=== PATIENT | female | born 1995 | race African-American/Black ===

== ENCOUNTER 2016-10-14 11:39 | Emergency (ER) | payer OTHER ==
[~2016-10-14] VITALS: Ht 165.1 cm; Wt 61.2 kg
[~2016-10-14 11:39] MED LIST: AMOXIL500 MG PO; DEPO-PROVE150 MG/11 IM; HUMALOG100 UNIT/1; IBUPROFEN800 M1 PO
--- NOTE | 2016-10-14 11:55 | ED GI/GU/ABDOMINAL COMPLAINT ---
History of Present Illness General Chief Complaint: Abdominal Pain/Flank Pain Stated Complaint: BIBA, ABD PAIN Source: patient, family, old records, EMS Exam Limitations: no limitations Vital Signs & Intake/Output Vital Signs & Intake/Output Vital Signs Date Time Temp Pulse Resp B/P B/P Pulse O2 O2 Flow FiO2 Mean Ox Delivery Rate 10/14 1338 98.2 88 18 124/64 99 Room Air 10/14 1150 98 Room Air 10/14 1145 97.8 92 18 141/83 98 Room Air Allergies Coded Allergies: Cephalosporins (Intermediate, HIVES 02/12/16) cefprozil (From CEFZIL) (Intermediate, HIVES 02/12/16) Reconcile Medications Dicyclomine Hydrochloride (Bentyl) 10 MG CAPSULE 1 CAP PO TID PRN pain Insulin Lispro (Humalog) 100 UNIT/1 ML CARTRIDGE DIABETES (Reported) Medroxyprogesterone Acetate (Depo-Provera) 150 MG/1 ML SYRINGE 1 ML IM Q3M CONTROL (Reported) Pantoprazole Sodium (Protonix) 40 MG TABLET.DR 1 TAB PO DAILY gastritis Triage Note: PT TO ROOM6 BIBA FROM WORK FOR SUDDEN ONSET OF EPIGASTRIC PAIN 10/10 AND NAUSEA 1HR LPTA. HX OF DIABETES, ASTHMA, PT HAS INSULIN PUMP. 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 DENIES V/D, DENIES CHEST PAIN, SOB. VSS. AFEBRILE. BG 128 PER MEDIC. KARMA CARTER AT BEDSIDE FOR PT EVAL. Triage Nurses Notes Reviewed? yes LMP (ages 10-50): unknown (ON DEPO) ? N Is pt currently ? No Onset: Abrupt Duration: hour(s): (1), constant Timing: recent history Quality/Severity: sharpness, severe, stabbing Severity Numbers: 10 Location: epigastric Radiation: no radiation Activities at Onset: none Prior Abdominal Problems: none No Modifying Factors: none Associated Symptoms: NAUSEA HPI: 21-year-old female type I diabetic with an insulin pump presents to the ER brought in by am is complaining of 10 out of 10 severe sharp stabbing epigastric pain is nonradiating associated with nausea for the past one hour. Symptoms came on suddenly. She denies vomiting diarrhea she attempted to have a bowel movement and eat which did not make the symptoms better or worse. She is medicated morphine in route by EMS without improvement. No history of abdominal surgeries in the past. The pain is nonradiating into her chest or back no urinary complaints no shortness of breath chest pain cough hemoptysis. She states her blood sugars have been well-controlled. There are no other associated symptoms or modifying factors otherwise. (TERI PRICE) Past History Travel History Traveled to [place] past 21 day No Medical History Any Pertinent Medical History? 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 No (TERI PRICE) Review of Systems Review of Systems Constitutional: Reports: see HPI. All Other Systems: Reviewed and Negative Comments Review of systems: See HPI, All other systems negative. Constitutional, no chills no fever, no malaise HEENT: No visual changes no sore throat no congestion Cardiovascular: No chest pain , no palpitation , no orthopnea Skin: no rashes, no change in skin Respiratory: No dyspnea no cough no sputum no hemoptysis GI: nausea no vomiting, no diarrhea, no bloating/constipation : No dysuria No hematuria, no frequency, no discharge Muscle skeletal: No joint pain, no joint swelling, no back pain, no neck pain, Neurologic: No numbness , no headache Psych: No stress Heme/endocrine: No bruising no bleeding Immunology: No lymphadenopathy (TERI PRICE) Physical Exam Physical Exam General Appearance: well developed/nourished, alert, awake, mild distress, moderate distress Gastrointestinal: soft, tenderness Comments: Well-developed well-nourished person in no acute distress HEENT: Normal EENT exam; PERRL, EOMI. HEAD is atraumatic. moist mucous membranes. Neck: Supple, normal range of motion Back: Nontender, no CVA tenderness. Full range of motion Cardiovascular: Regular rate and rhythms no murmurs rubs Respiratory: Chest nontender.There were no bony deformities, no asymmetry. No respiratory distress. Patient speaking in full complete sentences. Breath sounds clear to auscultation bilaterally: NO W/R/R Abdomen: Soft, epigastric tenderness palpation nondistended, no appreciable organomegaly. Normal bowel sounds. No rebound/guarding, No appreciable enlargement of the abdominal aorta, No ascites. Extremity: No edema, full range of motion of extremities Neuro: Alert oriented x3, motor sensory normal. There were no obvious focal neurologic abnormalities. Skin: No appreciable rash on exposed skin, skin is warm and dry. no jaundice Psych: Mood and affect is normal, memory and judgment is normal. Core Measures ACS in differential dx? No Severe Sepsis Present: No Septic Shock Present: No (EMMA PARADA,TERI) Progress Differential Diagnosis: appendicitis, biliary colic, bowel obstruction, colon cancer, cholecystitis, diverticulitis, ectopic , gastritis, hepatitis, hernia, ischemic bowel, inflamm bowel dis, intrauterine , kidney stone, ovarian cyst, pancreatitis, peptic ulcer, PUD/GERD, perforated viscous, SBO, threatened AB, UTI/pyelo, esophagitis Plan of Care: Orders Procedure Date/time Status FingerStick- Glucose 10/14 1143 Active LIPASE 10/14 1143 Complete HUMAN BETA HCG SCREEN 10/14 1143 Complete COMPREHENSIVE METABOLIC PANEL 10/14 1143 Complete CBC WITHOUT DIFFERENTIAL 10/14 1143 Complete AMYLASE 10/14 1143 Complete Laboratory Tests 10/14/16 1205: Anion Gap 12, Estimated GFR > 60, BUN/Creatinine Ratio 25.7 H, Glucose 108 H, Calcium 9.4, Total Bilirubin 1.3, AST 171 H, ALT 85 H, Alkaline Phosphatase 59 , Total Protein 7.1, Albumin 4.1, Globulin 3.0, Albumin/Globulin Ratio 1.4, Amylase 35, Lipase 48, Total Beta HCG NEGATIVE, CBC w Diff NO MAN DIFF REQ, RBC 4.53, MCV 88.3, MCH 29.2, RDW 13.1, MPV 8.7, Gran % 71.6, Lymphocytes % 18.5 L, Monocytes % 6.0, Eosinophils % 3.5, Basophils % 0.4, Absolute Granulocytes 7.7 H, Absolute Lymphocytes 2.0, Absolute Monocytes 0.6, Absolute Eosinophils 0.4, Absolute Basophils 0, PUBS MCHC 33.1 10/14/16 1143: Urine Color Cancelled, Urine Clarity Cancelled, Urine pH Cancelled, Ur Specific [place] Cancelled, Urine Protein Cancelled, Urine Ketones Cancelled, Urine Nitrite Cancelled, Urine Bilirubin Cancelled, Urine Urobilinogen Cancelled, Ur Leukocyte Esterase Cancelled, Ur Microscopic Cancelled, Urine Hemoglobin Cancelled, Urine Glucose Cancelled Labs ordered patient medicated with Toradol 30 Dilaudid 1 Pepcid 20 over 4 IV IV fluids Patient reporting pain has improved pending CAT scan labs 10/14/2016 1:29:30 PM discussed with the patient and family all at length all of her lab results pending CAT scan remains asymptomatic at this time On repeat evaluation patient is again resting in no apparent distress the case and the CAT scan were reviewed with Dr. Crisostomo agrees with the plan. There is no right upper quadrant tenderness the patient is afebrile there is no elevated white blood cell count considered cholangitis however the patient doesn 't have the symptoms presenting for the same at this time. I discussed with the patient and her mother at length all of her lab results and CAT scan findings. I had an extensive conversation regarding need for close follow up with their primary care physician as well as reservoir engineering consultant this week for repeat lab testing and close observation as well as return precautions, I discussed the possibility that she may require endoscopy in the future if these episodes occur again. I answered all of their questions, they feel comfortable with the plan and follow-up care. I discussed the medications-Protonix Bentyl that they will receive with the patient. I gave them signs and symptoms that could indicate an adverse reaction. I have advised them to limit their activities until they can see how they respond to the medication. (EMMA PARADA,TERI) Diagnostic Imaging: Viewed by Me: CT Scan. Discussed w/RAD: CT Scan. Radiology Impression: PATIENT: JALYN HILTON PRESENT AGE: 21 PATIENT ACCOUNT NO: [id number] : 96 LOCATION: [facility] ORDERING PHYSICIAN: TERI PARADA SERVICE DATE: 10/14/16 EXAM TYPE: CAT - CT ABD & PELVIS W IV CONTRAST EXAMINATION: CT ABDOMEN AND PELVIS WITH CONTRAST CLINICAL INFORMATION: Epigastric pain and nausea. COMPARISON: Lumbar spine CT, 02/12/2016. TECHNIQUE: Multidetector volumetric imaging was performed of the abdomen and pelvis before and after the IV administration of 95 mL of of Optiray 320 intravenous contrast. Sagittal and coronal reformatted images were obtained on the technologist's workstation. DLP: 269 mGy-cm FINDINGS: LUNG BASES : Unremarkable. LIVER, GALLBLADDER, AND BILIARY TREE: Liver has normal size and contour. No evidence of hepatic mass or intrahepatic bile duct dilatation. Portal and hepatic veins are patent. There is a nonspecific finding of periportal edema. The gallbladder is underdistended. No evidence of radiopaque calculus, gallbladder wall edema or pericholecystic inflammatory change. PANCREAS: Unremarkable. SPLEEN: Unremarkable. ADRENAL GLANDS: Unremarkable. KIDNEYS AND URETERS: Kidneys are normal in size and enhance symmetrically. No nephrolithiasis or hydronephrosis. At the upper pole of the left kidney, there is a small, 0.5 cm cortical lesion of fat attenuation, consistent with an angiomyolipoma, unchanged in size compared to 02/12/2016. BLADDER: Unremarkable. GASTROINTESTINAL TRACT: Stomach is unremarkable. Bowel loops are normal in size. Appendix is normal. No evidence of acute inflammation or obstruction along the gastrointestinal tract. No ascites or pneumoperitoneum. ABDOMINAL WALL: Unremarkable. LYMPH NODES: No pathologic sized lymph nodes in the abdomen or pelvis. VASCULAR: Abdominal aorta is normal in caliber and the celiac trunk, SMA , LETICIA and renal arteries are normal. PELVIC VISCERA: The anteflexed uterus is normal in size. No adnexal masses or pelvic free fluid. OSSEOUS STRUCTURES: Unremarkable. IMPRESSION: 1. No evidence of cholelithiasis or cholecystitis. 2. Periportal edema is a nonspecific finding; it can be seen in multiple situations , including hepatitis, fluid overload (unlikely in this patient) or cholangitis. Recommend correlation with liver function tests to determine whether patient has laboratory features of hepatitis. 3. 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 DICTATED BY: GLADYS WILDER MD DATE/TIME DICTATED:10/14/161321 HOUSING COORDINATOR:COLLEEN DATE/ TIME TRANSCRIBED:10/14/161321 CONFIDENTIAL, DO NOT COPY WITHOUT APPROPRIATE AUTHORIZATION. <Electronically signed in Other Vendor System> SIGNED BY: GLADYS WILDER MD 10/14/16 1339 Initial ED EKG: none (TERI PRICE) Departure Departure Time of Disposition: 1351 Disposition: HOME OR SELF CARE Condition: Stable Clinical Impression Primary Impression: Abdominal pain Secondary Impressions: Transaminitis Referrals: MARIAA HUITRON,NONI BLAIR MD,HAIDER Arreguin (PCP/Family) Additional Instructions: follow up with your pmd as well as reservoir engineering consultant dr powers this week. bland diet, clear liquids. no fatty, spicy greasy foods. bentyl and protonix as discussed. these were sent to [facility]. Return immediately if you have persistent pain despite medication, nausea vomiting, diarrhea, fever, chills or you have any other concerns Departure Forms: Customer Survey General Discharge Information Prescriptions: Current Visit Scripts Dicyclomine Hydrochloride (Bentyl) 1 CAP PO TID PRN pain #15 CAP Pantoprazole Sodium (Protonix) 1 TAB PO DAILY #15 TAB (TERI PRICE) PA/WOOL GROWER Co-Sign Statement Statement: ED Attending supervision documentation- [] I saw and evaluated the patient. I have also reviewed all the pertinent lab results and diagnostic results. I agree with the findings and the plan of care as documented in the PA's/WOOL GROWER's documentation. [X] I have reviewed the ED Record and agree with the PA's/WOOL GROWER's documentation. [] Additions or exceptions (if any) to the PAs/WOOL GROWER's note and plan are summarized below: [] (KARTHIKEYAN HUITRON,ANGELITA Denson)
[2016-10-14 12:22] LABS: ABSOLUTE BASOPHIL COUNT 0 /CUMM (0.0-0.2); ABSOLUTE EOSINOPHIL COUNT 0.4 /CUMM (0.0-0.7); ABSOLUTE GRANULOCYTE CT 7.7 /CUMM (1.4-6.5); ABSOLUTE MONOCYTE COUNT 0.6 /CUMM (0.10-0.60); BASOPHIL % 0.4 % (0.0-2.0); EOSINOPHIL % 3.5 % (0-5); GRANULOCYTE % 71.6 % (42.2-75.2); MEAN CORPUSCULAR HGB 29.2 PG (27.0-31.0); MEAN CORPUSCULAR HGB CONC 33.1 G/DL (33.0-37.0); MEAN CORPUSCULAR VOLUME 88.3 FL (81.0-99.0); MEAN PLATELET VOLUME 8.7 FL (7.4-10.4); PLATELET COUNT 263 /CUMM (130-400); RBC DISTRIBUTION WIDTH 13.1 % (11.5-14.5); RED BLOOD CELL CT 4.53 /CUMM (4.20-5.40); WHITE BLOOD CELL COUNT 10.7 /CUMM (4.8-10.8)
[2016-10-14 13:38] VITALS: BP 124/64
--- NOTE | 2016-10-14 13:39 | CT SCAN REPORT ---
EXAMINATION: CT ABDOMEN AND PELVIS WITH CONTRAST CLINICAL INFORMATION: Epigastric pain and nausea. COMPARISON: Lumbar spine CT, 02/12/2016. TECHNIQUE: Multidetector volumetric imaging was performed of the abdomen and pelvis before and after the IV administration of 95 mL of of Optiray 320 intravenous contrast. Sagittal and coronal reformatted images were obtained on the technologist's workstation. DLP: 269 mGy-cm FINDINGS: LUNG BASES: Unremarkable. LIVER, GALLBLADDER, AND BILIARY TREE: Liver has normal size and contour. No evidence of hepatic mass or intrahepatic bile duct dilatation. Portal and hepatic veins are patent. There is a nonspecific finding of periportal edema. The gallbladder is underdistended. No evidence of radiopaque calculus, gallbladder wall edema or pericholecystic inflammatory change. PANCREAS: Unremarkable. SPLEEN: Unremarkable. ADRENAL GLANDS: Unremarkable. KIDNEYS AND URETERS: Kidneys are normal in size and enhance symmetrically. No nephrolithiasis or hydronephrosis. At the upper pole of the left kidney, there is a small, 0.5 cm cortical lesion of fat attenuation, consistent with an angiomyolipoma, unchanged in size compared to 02/12/2016. BLADDER: Unremarkable. GASTROINTESTINAL TRACT: Stomach is unremarkable. Bowel loops are normal in size. Appendix is normal. No evidence of acute inflammation or obstruction along the gastrointestinal tract. No ascites or pneumoperitoneum. ABDOMINAL WALL: Unremarkable. LYMPH NODES: No pathologic sized lymph nodes in the abdomen or pelvis. VASCULAR: Abdominal aorta is normal in caliber and the celiac trunk, SMA, LETICIA and renal arteries are normal. PELVIC VISCERA: The anteflexed uterus is normal in size. No adnexal masses or pelvic free fluid. OSSEOUS STRUCTURES: Unremarkable. IMPRESSION: 1. No evidence of cholelithiasis or cholecystitis. 2. Periportal edema is a nonspecific finding; it can be seen in multiple situations, including hepatitis, fluid overload (unlikely in this patient) or cholangitis. Recommend correlation with liver function tests to determine whether patient has laboratory features of hepatitis. 3. 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
[2016-10-14] MEDS ORDERED: PROTONIX40 M3 PO (13:53)
[2016-10-14] MEDS ORDERED: BENTYL10 M1 PO (13:53)
== END 2016-10-14 13:57 ==
LOC: ERH 11:39
PROVIDERS: Physician Assistant Medical
DX: R74.0 Nonspecific elevation of levels of transaminase and lactic acid dehydrogenase [LDH] (principal); R10.13 Epigastric pain
CPT/HCPCS: 74177; 81025; 96374; 96375; J1885; J2405